=== PATIENT | female | born 1935 | race Caucasian/White ===

== ENCOUNTER 2017-09-07 23:07 | Emergency (ER) | payer MEDICARE, OTHER ==
[~2017-09-07] VITALS: Ht 170.2 cm; Wt 67.6 kg
[2017-09-08] VITALS (7 sets, daily range): BP systolic 105–121; BP diastolic 49–60
[2017-09-08] MEDS ORDERED: METO25 PO (00:07)
[2017-09-08] MEDS ORDERED: ATOR20TA86 PO (00:07)
[2017-09-08] MEDS ORDERED: CINA30 PO (00:07)
[2017-09-08] MEDS ORDERED: OMEP20 PO (00:07)
[2017-09-08] MEDS ORDERED: ALLO100T PO (00:07)
[2017-09-08] MEDS ORDERED: LEVO75 PO (00:07)
[2017-09-08] MEDS ORDERED: HYDR-2924 PO (00:07)
[2017-09-08] MEDS ORDERED: DOCU250C91 PO (00:07)
[2017-09-08] MEDS ORDERED: SEVE800PW PO (00:07)
[2017-09-08] MEDS ORDERED: ASPI-1182 PO (00:07)
[2017-09-08] MEDS ORDERED: AMLO-512 PO (00:07)
[2017-09-08] MEDS ORDERED: CLON-570 PO (00:07)
[2017-09-08 00:21] LABS: PROTHROMBIN TIME 10.7 SEC (9.4-11.6)
[2017-09-08 00:27] LABS: MEAN CORPUSCULAR HEMOGLOBIN 31.2 pg (26.0-34.0); MEAN CORPUSCULAR HGB CONC 33.3 G/dL (31.0-37.0); MEAN CORPUSCULAR VOLUME 94 fL (80-100); PLATELET COUNT (AUTO) 76 K/uL (150-450); RED BLOOD CELL COUNT(AUTO) 2.18 MIL/uL (4.00-5.20); RED CELL DISTRIBUTION WIDTH 21.2 % (11.5-14.5)
[2017-09-08 00:32] LABS: HEMATOCRIT 20.4 % (36-46); HEMOGLOBIN 6.8 g/dL (12.0-16.0)
[2017-09-08 02:48] LABS: BUFFY COAT SMEAR PREP YES (NOT DONE)
[2017-09-08 02:51] LABS: BAND NEUTROPHILS % (MANUAL) 2 % (0-5); LYMPHOCYTES % (MANUAL) 29 % (22-44); MONOCYTES % (MANUAL) 19 % (2-9); PATHOLOGY REVIEW, DIFF YES; SEGMENTED NEUTROPHILS % 50 % (40-70)
[2017-09-08 02:52] LABS: PLATELET MORPHOLOGY COMMENT GIANT PLTS PRESENT
== END 2017-09-08 05:35 | disposition home or self-care (01) ==
LOC: EMS 23:09
DX: D64.9 Anemia, unspecified (principal); I95.1 Orthostatic hypotension; E11.9 Type 2 diabetes mellitus without complications; I10 Essential (primary) hypertension; Z79.82 Long term (current) use of aspirin; Z85.72 Personal history of non-Hodgkin lymphomas; Z90.710 Acquired absence of both cervix and uterus; Z99.2 Dependence on renal dialysis
CPT/HCPCS: 36415; 36430; 85009; 85025; 85610; 85730; 86850; 86900; 86901; 86920; 99285; P9016